=== PATIENT | female | born 1980 | race Caucasian/White ===

== ENCOUNTER → 2018-04-11 14:02 | Outpatient (CLI) | payer BC, SELFPAY ==
[2018-04-19 11:47] LABS: HPV HC, High Risk Negative (Negative)
[2018-04-19 12:29] LABS: HPV Reflexed? YES, CHARGE PATIENT
== END ==
PROVIDERS: Visit Provider Obstetrics & Gynecology
DX: Z12.4 Encounter for screening for malignant neoplasm of cervix (principal)
CPT/HCPCS: 87624; 88175; G0145

== ENCOUNTER → 2021-08-09 11:56 | Outpatient (CLI) | payer BC, SELFPAY ==
[2021-08-09 14:28] LABS: Prolactin 4.5 ng/mL; Thyroid Stim Hormone (TSH) 2.44 uIU/mL (0.358-3.74)
[2021-08-17 19:00] LABS: HPV APTIMA, High Risk Negative (Negative)
== END ==
PROVIDERS: Visit Provider Student in an Organized Health Care Education/Training Program
DX: O92.6 Galactorrhea (principal); Z12.4 Encounter for screening for malignant neoplasm of cervix
CPT/HCPCS: 36415; 84146; 84443; 87624; 88175; G0145

== ENCOUNTER 2021-11-10 14:05 | Outpatient (CLI) | payer BC, SELFPAY ==
--- NOTE | 2021-11-10 14:10 | BI_ITS ---
MAMMOGRAPHY - BILATERAL DIAGNOSTIC REASON FOR EXAM: Female, 40 years old. Bilateral breast tenderness. Bilateral nipple discharge. PERTINENT HISTORY: Grandmother with breast cancer. TECHNIQUE: Digital bilateral breast hue (3D mammographic acquisition) in the CC and MLO projections. 2-D mediolateral oblique (MLO) and craniocaudad (CC) views of both breasts were obtained. CAD: Full Field Digital Mammography with Computer Added Detection was performed. COMPARISON: Comparison is made with prior outside examination dated 07/24/2018. FINDINGS: Breast Composition: The breasts are extremely dense, which lowers the sensitivity of mammography. There are no dominant masses or suspicious calcifications. No other significant abnormalities are identified. There has been no significant change since the prior study. BI/DIAG MAMM W/CAD, BILAT IMPRESSION: Stable bilateral diagnostic mammogram. With the patient''s history of bilateral breast discharge, correlation with ultrasound is recommended. ASSESSMENT CATEGORY: BIRADS Category 0: Incomplete. Need additional imaging evaluation. A letter regarding these results will be sent to the patient by the facility within 30 days. Approximately 10% of breast cancers are not detected by mammography. A normal mammogram should not delay biopsy of a clinically suspicious abnormality. Electronically Signed: Dawson Young MD at 16:10 EST ,
--- NOTE | 2021-11-10 15:04 | US_ITS ---
STUDY: ULTRASOUND BREAST - BILATERAL REASON FOR EXAM: Female, 40 years old. Bilateral nipple discharge and tenderness. TECHNIQUE: Axial and longitudinal images of the BILATERAL breast were performed with a high resolution ultrasound transducer. # OF IMAGES: 17 COMPARISON: None. FINDINGS: BILATERAL Breast: Imaging of the retroareolar regions of both breasts was obtained. No sonographic abnormality is seen. US/Breast Limited Unilateral IMPRESSION: No sonographic abnormality is seen. ASSESSMENT CATEGORY: BIRADS Category 1: Negative. A letter regarding these results will be sent to the patient by the facility within 30 days. Electronically Signed: Dawson Young MD at 7:59 EST ,
== END 2021-11-10 23:59 | disposition home or self-care (01) ==
PROVIDERS: Visit Provider Student in an Organized Health Care Education/Training Program
DX: R92.8 Other abnormal and inconclusive findings on diagnostic imaging of breast (principal)
CPT/HCPCS: 76642; 77062; 77066; G0279